=== PATIENT | male | born 1995 | race African-American/Black ===

== ENCOUNTER 2023-11-18 05:12 | Emergency (ER) | payer SELFPAY ==
[2023-11-18] MEDS ORDERED: Sodium Chloride 0.9% 10 ML Syringe FLUSH PRN (05:33)
[2023-11-18] MEDS: Ondansetron 4 MG Tab.DIS PO ONE (05:54)
[2023-11-18] MEDS: Sodium Chloride 0.9% 1,000 ML IV ONE (05:55)
[2023-11-18 06:04] LABS: BASOPHILS ABSOLUTE AUTO 0.01 K/uL (0.00-0.20); BASOPHILS PERCENT AUTO 0.1 % (0.0-2.0); HEMATOCRIT 45.7 % (39.0-49.0); LYMPHOCYTES ABSOLUTE AUTO 0.45 K/uL (0.50-3.50); LYMPHOCYTES PERCENT AUTO 5.4 % (10.0-50.0); MEAN CORPUSCULAR HEMOGLOBIN 31.1 pg (28.2-33.3); MEAN CORPUSCULAR VOLUME 88.9 fL (84.0-98.0); MONOCYTES ABSOLUTE AUTO 0.69 K/uL (0.00-1.00); MONOCYTES PERCENT AUTO 8.3 % (2.0-14.0); NEUTROPHILS ABSOLUTE AUTO 7.14 K/uL (1.40-7.00); NEUTROPHILS PERCENT AUTO 86.2 % (45.0-80.0); PLATELET COUNT,PLT 208 K/uL (150-350); RED BLOOD CELL COUNT 5.14 M/uL (4.33-5.41); RED CELL DISTRIBUTION WIDTH 15.5 % (11.2-14.1); WHITE BLOOD CELL COUNT,WBC 8.3 K/uL (4.0-10.2)
[2023-11-18 06:20] LABS: ETHANOL BLOOD MEDICAL 0.003 g/dL (0.000-0.080)
[2023-11-18 06:22] LABS: ALANINE AMINOTRANSFERASE,ALT 58 U/L (12-78); ALBUMIN 4.6 g/dL (3.4-5.0); ALKALINE PHOSPHATASE 137 IU/L (46-116); ASPARTATE AMNIOTRANSFERASE,AST 49 U/L (15-37); BILIRUBIN TOTAL 1.6 mg/dL (0.2-1.0); BLOOD UREA NITROGEN,BUN 21 mg/dL (7-18); CALCIUM 9.7 mg/dL (8.5-10.1); CARBON DIOXIDE,CO2 24.4 mmol/L (21.0-32.0); CHLORIDE,CL 94 mmol/L (98-107); CREATININE 1.53 mg/dL (0.51-1.17); GLUCOSE RANDOM 116 mg/dL (70-99); POTASSIUM,K 4.2 mmol/L (3.5-5.1); PROTEIN TOTAL,TP 9.5 g/dL (6.4-8.2); SODIUM,NA 138 mmol/L (136-145)
[2023-11-18 06:23] LABS: ANION GAP 23.8 meq/L (7-15); ESTIMATED GFR 63 mL/min (>=60)
[2023-11-18 06:42] LABS: CORONAVIRUS COVID-19 NAA NEGATIVE (NEGATIVE); INFLUENZA A NAA NEGATIVE (NEGATIVE); INFLUENZA B NAA NEGATIVE (NEGATIVE); RESPIRATORY SYNCYTIAL VIR NAA NEGATIVE (NEGATIVE)
[2023-11-18] MEDS: LORazepam 2 MG/ML SDV IVPUSH ONE (06:50)
== END 2023-11-18 07:17 | disposition home or self-care (01) ==
LOC: LL.ED 05:12
DX: F10.930 Alcohol use, unspecified with withdrawal, uncomplicated (principal); F17.210 Nicotine dependence, cigarettes, uncomplicated
CPT/HCPCS: 0241U; 36415; 80053; 80307; 82271; 83690; 85025; 96361; 96374; 99283; 99284-25; A9270-GY; J2060; J7030